=== PATIENT | male | born 1955 | race Caucasian/White ===

== ENCOUNTER 2021-11-07 19:05 | Emergency (ER) | payer OTHER ==
[2021-11-07] MEDS ORDERED: MAGNESIUM 1 GM/100 ML IV ONE (19:06)
[2021-11-07] MEDS ORDERED: Cordarone 150 MG/3 ML Injection IJ ONE (19:06)
[2021-11-07] MEDS ORDERED: SODIUM BICARBONATE 50 MEQ/50 ML ABBOJECT IV ONE (19:06)
[2021-11-07] MEDS ORDERED: NARCAN 2 MG/2 ML IV ONE (19:06)
[2021-11-07] MEDS ORDERED: EPINEPHRINE ABBOJECT 1 MG IV ONE (19:06)
[2021-11-07] MEDS ORDERED: XYLOCAINE 100 MG/5 ML ABBOJECT IV ONE (19:06)
[2021-11-07] MEDS ORDERED: D5W IV ONE ×2 (19:06)
[2021-11-07] MEDS ORDERED: NOREPINEPHRINE 8 MG/250 ML IV ONE (19:06)
[2021-11-07] MEDS ORDERED: Sodium Chloride 0.9% 1000 ML 1,000 ML IV ONE (19:06)
--- NOTE | 2021-11-07 19:28 | ERPHSYRPT ---
- History of Present Illness Time Seen by Provider: 11/07/21 19:05 Historian: EMS, other (Patient actually arrived at 1809 but we could not do the paperwork until 1905.) Exam Limitations: clinical condition Physician History: This is a 65-year-old white male who approximately 1750 called first responders who arrived within 5 minutes and the patient immediately collapsed. A call was patient had severe chest pain and back pain. EMS arrived soon after and there was no palpable pulse. Patient had been shocked 3 times and given 3 rounds of epinephrine. Patient was in ventricular fibrillation per their report. Patient arrived to the emergency department with code arrest in progress. Patient arrived to our emergency department at 1809. We could not obtain any history from the patient. Activities at Onset: activity (We later found out that he had been mowing yards) Quality: sharpness, stabbing Location: substernal, central Chest Pain Radiation: back Severity of Pain-Max: moderate (To severe. Patient arrives unresponsive.) Modifying Factors: Improves With: nothing Associated Symptoms: denies symptoms (Patient unresponsive) Prior Chest Pain/Cardiac Workup: no prior chest pain, no prior cardiac workup Nitro Today/Relief: no nitro taken today Aspirin Treatment Today: no aspirin today Allergies/Adverse Reactions: No Known Drug Allergies Allergy (Unverified 02/09/16 09:02) Hx Tetanus, Diphtheria Vaccination/Date Given: No Hx Influenza Vaccination/Date Given: No Hx Pneumococcal Vaccination/Date Given: No Travel Risk - International Travel Have you traveled outside of the country in past 3 weeks: No - Coronavirus Screening Are you exhibiting any of the following symptoms?: No Close contact with a COVID-19 positive Pt in past 14-21 Days: No - Review of Systems Constitutional: No Symptoms Eyes: No Symptoms Ears, Nose, & Throat: No Symptoms Respiratory: No Symptoms Cardiac: Chest Pain Abdominal/Gastrointestinal: No Symptoms Genitourinary Symptoms: No Symptoms Musculoskeletal: Back Pain Skin: Other (Patient arrives mottled and appeared cyanotic from upper chest neck and face) Neurological: Other (Unresponsive) Endocrine: No Symptoms Hematologic/Lymphatic: No Symptoms Immunological/Allergic: No Symptoms All Other Systems: Reviewed and Negative - Past Medical History Pertinent Past Medical History: Yes Cardiac History: Hypertension Respiratory History: Pneumonia - Past Surgical History Past Surgical History: Yes Respiratory: Other Other Surgical History: "had lung scraped for pneumonia" - Social History Smoking Status: Former smoker Exposure to second hand smoke: Yes Drug Use: none Patient Lives Alone: Yes - Physical Exam General Appearance: other (Unresponsive airway secured with eye gel) Eye Exam: other (Bilateral pupils were equal in size and somewhat constricted) Ears, Nose, Throat Exam: dry mucous membranes Neck Exam: other (Somewhat cyanotic) Respiratory Exam: other (No spontaneous breath sounds) Cardiovascular Exam: other (No spontaneous heart tones. Ventricular fibrillation on the monitor) Rectal Exam: not done Back Exam: normal inspection Extremity Exam: other (Bilateral lower extremity mottling to the inguinal region. Left side worse than right) Neurologic Exam: other (Patient unresponsive) Skin Exam: mottled Lymphatic Exam: No adenopathy SpO2 Interpretation: hypoxic, ABG ordered, airway management int. O2 Delivery: Ambu-Bag Procedures - Intubation Time of Intubation: 18:20 Intubation Indications: cardiac arrest Intubation Method: orotracheal, curved blade, glidescope Tube Size (cm): 7.5 C-Spine: maintained Endotracheal Tube Confirmation: bilateral breath sounds, good rise & fall of chest Intubation Complications: no complications Performed By: [facility] Intubation Xray: No Progress/X-ray Impression: 11/07/21 19:29 Post intubation chest x-ray not possible because of the prolonged code process a nd the use of the Valentino compression device - Course Nursing assessment & vital signs reviewed: Yes EKG Interpreted by Me: RATE (71), Sinus Rhythm (PVCs, prolonged HI interval. This is the first twelve-lead EKG that could be obtained because the patient was in ventricular fibrillation and we could not obtain one earlier. He had a pulse at this point which was short-lived), prolonged QT interval, ST Elev (Extensive anterior infarct acute), Ischemic ST-T changes (Anterior leads) Ordered Tests: Active Orders 24 hr Category Date Time Status Intubation [Prepare for Endotracheal Intubation] STAT Care 11/07/21 19:17 Active Intubate Patient STAT RT 11/07/21 19:20 Active Standby STAT RT 11/07/21 19:18 Active - Progress Air Movement: poor Progress Note: 11/07/21 19:33 After several different types of interventions (see code arrest sheet) we did periodically appreciate short-lived palpable pulses that were bradycardiac. Second twelve-lead EKG was performed at 1852 there was an accelerated junctional rhythm with a heart rate of 70 and a right bundle branch block. There was a lateral infarction that was old. This is different than the first twelve-lead EKG. The third twelve-lead EKG was performed at 1854 again there was a palpable pulse that was faint then present there is a heart rate of 65 bpm with a junctional rhythm and right bundle branch block. Anterolateral infarct age undetermined. The fourth and final twelve-lead EKG was performed at 1907 which showed a heart rate of 47 and junctional rhythm and right bundle branch block and anterior infarction which was acute. I kept the family (ex- and sister) up-to-date often during the more than an hour and 20 minutes code process. Ultimately, I believe they made the correct decision to stop any further intervention as he was not responding to several different modalities of intervention. He likely had severe hypoxia that was prolonged. In addition it appears as though he may have had a massive acute anterior myocardial infarction. Dr. Jatin Baca was here during this time and I reviewed the case with him. Patient was evaluated briefly by Dr. Baca. This occurred at shift change. We both agree that the patient had agonal breathing and agonal cardiac rhythm that he would not survive from. The patient remained unstable despite all our attempts at saving him. I held a thorough discussion with the family and reviewed the above with them. They wanted all medications and assist device removed. Within approximately 20 minutes the the patient's agonal cardiac rhythm and agonal breathing ceased. The code was called at 192. Blood Culture(s) Obtained: No Antibiotics given: No Counseled pt/family regarding: lab results, diagnosis - Departure Departure Disposition: Clinical Impression: Cardiac arrest, Myocardial infarction acute Condition: Critical Care Time: Yes Critical Care Time(excluding separately billable procedures): Critical 30-74 mins (74) Referrals: DOCTOR,NO FAMILY [Primary Care Provider] - Follow up/PCP as directed
[2021-11-07 19:32] LABS: A-aADO2 530; ABG POTASSIUM 4.7 (3.5-5.1); ARTERIAL BLD GAS O2 SATURATION 99.5 % (95-100); ARTERIAL BLOOD GAS BASE EXCESS -24.2 (-2.0-2.0); ARTERIAL BLOOD GAS FIO2 100 %; ARTERIAL BLOOD GAS PCO2 39 mmHg (35-45); ARTERIAL BLOOD GAS PO2 134 mmHg (75-100); Glucose,Critical Care 407 (70-110); HGB O2 SAT 95.2 g/dF (94-100); Methhemoglobin 0.3 % (1.4-1.5)
[2021-11-07 19:34] LABS: ARTERIAL BLOOD GAS pH 6.92 (7.35-7.45)
[2021-11-07 19:35] LABS: ABG SITE LEFT BRACHIAL
== END 2021-11-07 19:29 | disposition expired ==
LOC: ED 19:05
DX: I21.9 Acute myocardial infarction, unspecified (principal); I46.2 Cardiac arrest due to underlying cardiac condition
CPT/HCPCS: 31500; 36600; 82375; 82803; 82947; 83605; 92950; 94799; 99282; 99291; J0171; J0282; J2001; J2310; J3475